=== PATIENT | female | born 1955 | race Caucasian/White ===

== ENCOUNTER 2023-10-02 08:12 | Observation (INO) | payer MEDICARE, BC ==
[~2023-10-02] VITALS: Ht 167.6 cm; Wt 68.5 kg
[2023-10-02 09:00] VITALS: BP 141/86; PULSE 61; RESP 16; RESP 18; TEMP 97.8; O2SAT 94; O2SAT 98
[2023-10-02] MEDS ORDERED: PRAV80TA3 PO (09:26)
[2023-10-02] MEDS ORDERED: METO-384 PO (09:26)
[2023-10-02] MEDS ORDERED: LEVO25TA7 PO (09:26)
[2023-10-02] MEDS ORDERED: AMI200T PO (09:26)
[2023-10-02] MEDS ORDERED: NORT25CA PO (09:26)
[2023-10-02] MEDS ORDERED: DAPA10TA PO (09:26)
[2023-10-02] MEDS ORDERED: ISOS30TA84 PO (09:26)
[2023-10-02] MEDS ORDERED: PANT40TA54 PO (09:26)
[2023-10-02] MEDS ORDERED: GABA600T13 PO (09:26)
[2023-10-02] MEDS ORDERED: CYCL5TAB PO (09:26)
[2023-10-02] MEDS ORDERED: SACU1TAB PO (09:26)
[2023-10-02] MEDS ORDERED: DABI150C PO (09:26)
[2023-10-02 09:35] LABS: BASOPHILS # (AUTO) 0.1 X10'3 (0-0.2); BASOPHILS % (AUTO) 1.2 % (0-1); EOSINOPHILS # (AUTO) 0.1 X10'3 (0-0.9); EOSINOPHILS % (AUTO) 2.7 % (0-6); HEMATOCRIT 39.3 % (35.0-45.0); HEMOGLOBIN 13.3 g/dl (12.0-16.0); LYMPHOCYTES # (AUTO) 2.3 X10'3 (1.1-4.8); LYMPHOCYTES % (AUTO) 44.9 % (21-51); MEAN CORPUSCULAR HEMOGLOBIN 31.1 PG (27.0-31.0); MEAN CORPUSCULAR HGB CONC 33.9 g/dL (33.0-36.5); MEAN CORPUSCULAR VOLUME 91.7 FL (78-98); MEAN PLATELET VOLUME 8.1 FL (7.4-10.4); MONOCYTES # (AUTO) 0.5 X10'3 (0-0.9); MONOCYTES % (AUTO) 10.3 % (2-12); NEUTROPHILS # (AUTO) 2.1 X10'3 (1.8-7.7); NEUTROPHILS % (AUTO) 40.9 % (42-75); PLATELET COUNT 233 X10'3 (140-440); RED BLOOD COUNT 4.29 X10'6 (4.20-5.60); RED CELL DISTRIBUTION WIDTH 13.8 % (11.5-14.5); WHITE BLOOD COUNT 5.1 X10'3 (4.5-11.0)
[2023-10-02 09:38] LABS: ALBUMIN 3.5 G/DL (3.4-5.0); ANION GAP 7 (8-16); BLOOD UREA NITROGEN 16 MG/DL (7-18); CALCIUM 8.9 MG/DL (8.5-10.1); CHLORIDE 107 MMOL/L (99-107); CREATININE 0.89 MG/DL (0.40-0.90); GLUCOSE 82 MG/DL (70-104); INR 1.1 INR; MAGNESIUM 2.3 MG/DL (1.5-2.4); POTASSIUM 3.9 MMOL/L (3.5-5.1); SODIUM 141 MMOL/L (135-145); TOTAL CARBON DIOXIDE 27.1 MMOL/L (24-32); eCRCL 58 ML/MIN; eGFR 63 ML/MIN
[2023-10-02] MEDS: cefazolin 2gm/D5W 100mL 100 ML IV ONE (09:50)
[2023-10-02] MEDS ORDERED: LIDOcaine 1% W/epiNEPHrine 1:100,000 20ml vial ONE ×2 (12:14→16:01)
[2023-10-02] MEDS ORDERED: fentaNYL/PF 50MCG/1 ML 2ML syringe ONE ×2 (12:14→15:42)
[2023-10-02] MEDS ORDERED: midazolam 1 mg/ML 2ml injection ONE ×3 (12:14→15:45)
[2023-10-02] MEDS ORDERED: vancomycin 1,000mg inj ONE (12:15)
[2023-10-02] MEDS ORDERED: ceFAZolin 1000mg inj ONE (13:51)
[2023-10-02] MEDS ORDERED: iohexol 350 MG/ML 50ML vial IV ONE (14:00)
[2023-10-02] MEDS ORDERED: clindamycin 600mg/D5W 50ml 50 ML IV ONE (15:01)
[2023-10-02] MEDS: normal saline 1000ml 1,000 ML IV SCH (17:30)
[2023-10-02] MEDS: HYDROcodone/acetaminophen 5mg/325mg tablet PO PRN (17:48)
[2023-10-02] MEDS: ketorolac trometh 15mg/ml vial 15 MG/ML ML IV ONE (19:00)
[2023-10-02 22:00] VITALS: BP 136/87; PULSE 60; RESP 11; TEMP 98; O2SAT 95
[2023-10-02] MEDS: cyclobenzaprine 10mg tablet PO PRN (22:32)
[2023-10-02] MEDS: metoprolol succinate 25mg (24-HOUR) SR. Tablet PO SCH (22:32)
[2023-10-02] MEDS: gabapentin 300mg capsule PO SCH (22:32)
[2023-10-02] MEDS: amiodarone 100mg tablet PO SCH (22:32)
[2023-10-02] MEDS: nortriptyline 25mg capsule PO SCH (22:36)
[2023-10-02] MEDS: sacubitril/valsartan 24mg-26mg tablet PO SCH (23:21)
[2023-10-02 23:25] VITALS: RESP 11; O2SAT 95
[2023-10-03 02:00] VITALS: BP 136/87; PULSE 60; RESP 11; TEMP 98.2; O2SAT 93
[2023-10-03 06:00] VITALS: BP 140/84; PULSE 60; RESP 14; TEMP 98; O2SAT 93
[2023-10-03 06:30] VITALS: O2SAT 94
[2023-10-03] MEDS: HYDROcodone/acetaminophen 10/325mg tab PO PRN (07:08)
[2023-10-03 09:30] VITALS: RESP 14; O2SAT 94
[2023-10-03] MEDS: pantoprazole 40mg Tablet.DR PO SCH (09:40)
[2023-10-03] MEDS: isosorbide mononitrate 30mg tab.SR.24H PO SCH (09:40)
[2023-10-03] MEDS: atorvastatin 20mg tablet PO SCH (09:40)
[2023-10-03] MEDS: levoTHYROXINE 25mcg tablet PO SCH (09:40)
[2023-10-03] MEDS: DAPAGLIFLOZIN 10MG TABLET PO SCH (09:41)
[2023-10-03 10:00] VITALS: BP 122/77; PULSE 60; RESP 14; TEMP 98.3; O2SAT 94
[2023-10-03] MEDS ORDERED: dabigatran 150mg capsule PO SCH (16:00)
== END 2023-10-03 12:45 | disposition home or self-care (01) ==
LOC: SSTAY O 08:12 → PCU 3S 09:43 → UNDOADMOB 09:43 → PCU 3S 11:11 → INTOOBSV 17:00 → PCU 3S 17:00 → UNDOADMOB 17:00 → UNDODISOB 10-03 12:45
PROVIDERS: ADMIT Internal Medicine Cardiovascular Disease; ATTEND Internal Medicine Cardiovascular Disease
DX: I42.0 Dilated cardiomyopathy (principal); I50.22 Chronic systolic (congestive) heart failure; I45.9 Conduction disorder, unspecified; I48.0 Paroxysmal atrial fibrillation; I49.5 Sick sinus syndrome; R07.9 Chest pain, unspecified; I95.1 Orthostatic hypotension; I44.7 Left bundle-branch block, unspecified; E03.9 Hypothyroidism, unspecified; E78.00 Pure hypercholesterolemia, unspecified; Z95.0 Presence of cardiac pacemaker; Z79.899 Other long term (current) drug therapy
CPT/HCPCS: 80048; 83735; 85610; 93005; 96374; 99152; 99153; A4565; A4620; C1769; C1900; C2621; G0378; J3490; Q9967; 33225; 33229; 36415; 71045; 85025; J0690; J1885; J2250; J3010; J3370; J7030

== ENCOUNTER 2024-09-15 00:43 | Inpatient (IN) | payer MEDICARE, BC ==
[2024-09-15] VITALS (8 sets, daily range): BP systolic 91–121; BP diastolic 57–74; PULSE 60–61; RESP 14–16; O2SAT 93–96
[~2024-09-15] VITALS: Ht 167.6 cm; Wt 60.1 kg
[~2024-09-15 00:43] MED LIST: AMI200T PO; CYCL-920 PO; DABI150C PO; DAPA10TA PO; GABA-1405 PO; ISOS30TA84 PO; LEVO25TA7 PO; METO-384 PO; NORT25CA PO; PANT40TA54 PO; PRAV80TA3 PO; SACU1TAB PO
--- NOTE | 2024-09-15 01:07 | Physician Documentation ---
History of Present Illness ~ Chief Complaint: Chest Pain Stated Complaint: CHEST PAIN Time Seen by MD: 01:07 HPI Patient presents to the emergency room for evaluation of chest pain that woke her out of sleep this evening. Patient states that it is like a Charley horse has radiating to her bilateral chest exacerbated with deep breaths. No prior instances. The patient did have a pacemaker placed last September and she reports that an angiography was done prior to that was negative for disease. Positive nausea without vomiting. No significant history of heartburn. Denies one-sided leg pain. Patient does have a history of high blood pressures well as cholesterol but no diabetes and patient does not smoke or have first-degree relative of heart disease. Medication Reconciliation Allergies: Coded Allergies: Penicillins (Verified Allergy, Unknown, RASH ONE TIME, 09/15/24) >5 years, rash, on treatment required Sulfa (Sulfonamide Antibiotics) (Verified Allergy, Unknown, 09/15/24) vancomycin (Verified Allergy, Unknown, 09/15/24) Scheduled Amiodarone Hcl (Cordarone), 0.5 TAB PO BID, (Reported) Apixaban (Eliquis), 1 TAB PO BID, (Reported) Cephalexin Monohydrate (Cephalexin), 1 CAP PO Q6H Gabapentin (Gabapentin), 1 TAB PO BID, (Reported) Levothyroxine Sodium (Levothyroxine Sodium), 1 TAB PO DAILY, (Reported) Metoprolol Succinate (Metoprolol Succinate), 0.5 TAB PO BID, (Reported) Nortriptyline HCl (Nortriptyline HCl), 2 CAP PO TID, (Reported) Pantoprazole Sodium (Pantoprazole Sodium), 1 TAB PO DAILY, (Reported) Potassium Chloride (Potassium Chloride), 1 TAB PO DAILY, (Reported) Pravastatin Sodium (Pravastatin Sodium), 1 TAB PO DAILY, (Reported) Sacubitril/Valsartan (Entresto 24 mg-26 mg Tablet), 1 TAB PO BID, (Reported) Discontinued Medications Cyclobenzaprine HCl (Cyclobenzaprine HCl), 1 TAB PO TID PRN for muscle spasms, (Reported) Discontinued Reason: completed med therapy Dabigatran (PRADAXA capsule), 1 CAP PO BID, (Reported) Discontinued Reason: completed med therapy Dapagliflozin Propanediol (Farxiga), 1 TAB PO DAILY, (Reported) Discontinued Reason: completed med therapy Isosorbide Mononitrate (Isosorbide Mononitrate Er), 1 TAB PO DAILY, (Reported) Discontinued Reason: completed med therapy Levothyroxine Sodium (Levothyroxine Sodium), 1 TAB PO DAILY, (Reported) Discontinued Reason: patient no longer taking Review of Systems ROS All review of systems negative except as per HPI Physical Exam Vital Signs: Temperature: 96.8, Source: Temporal, Heart Rate: 71, Respiratory Rate: 15, BP: 177/90, Pulse Oximetry: 99, Weight: 60.100 Physical Exam General: Patient is awake, alert, oriented x4 in mild distress Head: Normocephalic and atraumatic. Eyes: Conjunctival normal. EOMI. PERRL. ENT: Mucous membranes moist. Neck: Supple, trachea is midline. Chest: Clear to auscultation bilaterally without rales, rhonchi, or wheezes. There is no accessory muscle use or retractions. Cardiac: RRR without murmurs, gallops, or rubs. Abd: Soft, nondistended, nontender, with normoactive bowel sounds. No guarding, rebound, or rigidity. Extremities: Normal strength. Normal range of motion. No deformities or edema. No calf tenderness to palpation Progress Progress Note 7:29 a.m. Doctor Hetal Montgomery received this patient in sign-out 68-year-old female history of HFrEF, P p.m. presenting for crushing chest pain she awoke her from sleep. Radiated to her neck and left arm. No history of similar. She is now chest pain-free. No history of coronary artery disease heart score 6. Troponin negative. I personally interpreted the EKG showed no ischemia 7:[address] Corcoran who agree with management plan and graciously accept for admission Results/Orders Reviewed/noted all lab results: Yes Results/Orders Orders - DAR BHATIA MD Chest,Single View (09/15/24 01:30) Monitor (09/15/24 00:49) Saline Lock (09/15/24 00:49) Oxygen (09/15/24 00:49) Electrocardiogram (09/15/24 00:49) Cta Chest Pe (09/15/24 04:45) Completed Orders - DAR BHATIA MD Chest,Single View (09/15/24 01:30) Cbc/Diff (09/15/24 00:49) PBNP (09/15/24 00:49) Electrocardiogram (09/15/24 00:49) CMP (09/15/24 00:49) Hs Troponin I W Calculations (09/15/24 00:49) Hs Troponin I W Calculations (09/15/24 02:49) Hs Troponin I W Calculations (09/15/24 03:49) Ondansetron Inj. (Zofran 4mg/2ml Vial) (09/15/24 01:25) Mag & Alum Hydrox/Simeth Susp (Maalox Or (09/15/24 01:25) Lidocaine 2% Viscous (Xylocaine 2% Visco (09/15/24 01:25) Hydrocodone/Apap 5/325mg Tab ([place] (09/15/24 02:10) Cta Chest Pe (09/15/24 04:45) Iohexol 350mg/Ml 100ml (Omnipaque 350mg/ (09/15/24 03:26) Lipid Panel (09/15/24 01:15) Vital Signs 09/15/24 09/15/24 07:20 08:18 Temp 96.7 Pulse 60 Resp 12 16 B/P (MAP) 129/72 (91) Pulse Ox 94 O2 Flow Rate 0 FiO2 21 Laboratory Tests Test 09/15/24 01:15 09/15/24 02:49 09/15/24 03:55 White Blood Count 7.5 Red Blood Count 4.18 L Hemoglobin 13.3 Hematocrit 38.7 Mean Corpuscular Volume 92.5 Mean Corpuscular Hemoglobin 31.8 H Mean Corpuscular Hemoglobin Concent 34.4 Red Cell Distribution Width 13.8 Platelet Count 238 Mean Platelet Volume 8.6 Neutrophils (%) (Auto) 48.8 Lymphocytes (%) (Auto) 37.1 Monocytes (%) (Auto) 10.8 Eosinophils (%) (Auto) 2.5 Basophils (%) (Auto) 0.8 Neutrophils # (Auto) 3.7 Lymphocytes # (Auto) 2.8 Monocytes # (Auto) 0.8 Eosinophils # (Auto) 0.2 Basophils # (Auto) 0.1 CBC Comment Sodium Level 139 Potassium Level 3.9 Chloride Level 103 Carbon Dioxide Level 25.9 Anion Gap 10 Blood Urea Nitrogen 17 Creatinine 1.05 H Estimated GFR/1.73 m2 52 BUN/Creatinine Ratio 16.2 Glucose Level 95 Hemoglobin A1c 5.6 Calcium Level 8.5 Total Bilirubin 0.3 Aspartate Amino Transf (AST/SGOT) 43 H Alanine Aminotransferase (ALT/SGPT) 85 H Alkaline Phosphatase 117 H Troponin I High Sensitivity 9 10 11 Pro-B-Type Natriuretic Peptide 198 H Total Protein 6.9 Albumin 3.6 Globulin 3.3 Albumin/Globulin Ratio 1.1 Triglycerides Level 58 Cholesterol Level 150 LDL Cholesterol 72 HDL Cholesterol 60 Cholesterol/HDL Ratio 2.5 Chemistry Comments Troponin I High Sens Percent Delta 11 10 Troponin I Hi Sens Absolute Change 1 1 Re-Evaluation Re-Evaluation : Progress Patient presents to the emergency room for evaluation of chest pain. D ifferentials include but are not limited to ACS, pulmonary embolism, aortic pathology, reflux. Negative response to GI cocktail although patient is beginning to feel better. Chest pain is atypical in that it is exacerbated with deep inspirations however central in nature and radiating to bilateral shoulders and neck. Patient with some risk factors with an elevated heart score of four. EKG/XRAY/CT/US/VASC/MRI EKG : Additional Comment EKG interpreted by myself shows time of 0047, rate 71, paced rhythm, no further analysis secondary to paced rhythm Heart Score: Heart Score Response (Comments) Value History Highly Suspicious 2 EKG Repolarization Disturb 1 Age >65 2 Risk Factors 1 or 2 risk factors 1 Troponin N/A 0 Total 6 Medical Decision Making Differential Dx:Considerations: Include: angina, aortic dissection, chest wall pain Departure Disposition: ADMITTED INPATIENT Admitted to Inpatient Unit: to hospitalist Impression: Primary Impression: Chest pain Qualified Codes: R07.9 - Chest pain, unspecified Referrals: NO PRIMARY CARE PROVIDER (PCP) Prescriptions Cephalexin Monohydrate (Cephalexin) 500 Mg Capsule 1 CAP PO Q6H, #20 CAP Prov: ROMMEL CORCORAN DO 09/16/24 Signature Scribe Signature: No scribe Attestation: The note accurately reflects work and decisions made by me.Dar Bhatia MD 09/15/24 06:01 DAR BHATIA MD September 15, 2024 01:07 LUIS SALAS MD September 15, 2024 07:30
[2024-09-15 01:25] LABS: BASOPHILS # (AUTO) 0.1 X10'3 (0-0.2); BASOPHILS % (AUTO) 0.8 % (0-1); EOSINOPHILS # (AUTO) 0.2 X10'3 (0-0.9); EOSINOPHILS % (AUTO) 2.5 % (0-6); HEMATOCRIT 38.7 % (35.0-45.0); HEMOGLOBIN 13.3 g/dl (12.0-16.0); LYMPHOCYTES # (AUTO) 2.8 X10'3 (1.1-4.8); LYMPHOCYTES % (AUTO) 37.1 % (21-51); MEAN CORPUSCULAR HEMOGLOBIN 31.8 PG (27.0-31.0); MEAN CORPUSCULAR HGB CONC 34.4 g/dL (33.0-36.5); MEAN CORPUSCULAR VOLUME 92.5 FL (78-98); MEAN PLATELET VOLUME 8.6 FL (7.4-10.4); MONOCYTES # (AUTO) 0.8 X10'3 (0-0.9); MONOCYTES % (AUTO) 10.8 % (2-12); NEUTROPHILS # (AUTO) 3.7 X10'3 (1.8-7.7); NEUTROPHILS % (AUTO) 48.8 % (42-75); PLATELET COUNT 238 X10'3 (140-440); RED BLOOD COUNT 4.18 X10'6 (4.20-5.60); RED CELL DISTRIBUTION WIDTH 13.8 % (11.5-14.5); WHITE BLOOD COUNT 7.5 X10'3 (4.5-11.0)
[2024-09-15 01:41] LABS: ALANINE AMINOTRANSFERASE 85 U/L (12-78); ALBUMIN 3.6 G/DL (3.4-5.0); ALBUMIN/GLOBULIN RATIO 1.1 (1.1-1.5); ALKALINE PHOSPHATASE 117 IU/L (46-116); ANION GAP 10 (8-16); ASPARTATE AMINO TRANSFERASE 43 U/L (10-37); BILIRUBIN,TOTAL 0.3 MG/DL (0.1-1.0); BLOOD UREA NITROGEN 17 MG/DL (7-18); BUN/CREATININE RATIO 16.2 (10.0-20.0); CALCIUM 8.5 MG/DL (8.5-10.1); CHLORIDE 103 MMOL/L (99-107); CREATININE 1.05 MG/DL (0.40-0.90); GLUCOSE 95 MG/DL (70-104); POTASSIUM 3.9 MMOL/L (3.5-5.1); SODIUM 139 MMOL/L (135-145); TOTAL CARBON DIOXIDE 25.9 MMOL/L (24-32); TOTAL PROTEIN 6.9 G/DL (6.4-8.2); eCRCL 49 ML/MIN; eGFR 52 ML/MIN
[2024-09-15] MEDS: LIDOcaine 2% Viscous 15ml cup MM ONE (01:44)
[2024-09-15] MEDS: ondansetron/PF 4mg/2ml inj IV ONE (01:44)
[2024-09-15] MEDS: mag hydrox/Alum hydrox/simeth 30ml oral suspension PO ONE (01:44)
[2024-09-15 01:48] LABS: PRO BRAIN NATRIURETIC PEPTIDE 198 PG/ML (0-125)
--- NOTE | 2024-09-15 01:50 | RADIOLOGY REPORT ---
CHEST RADIOGRAPH Indication: CP Technique: Single frontal view of the chest was obtained COMPARISON: DI CHEST,SINGLE VIEW on DOS: 10/02/23 FINDINGS: Lines and Tubes: Dual-lead pacemaker again noted overlying left chest wall. Lungs: Clear Pleura: No effusion. No pneumothorax. Cardiomediastinal contours: Unremarkable IMPRESSION: No abnormality demonstrated. No appreciable change compared to the prior chest x-ray from September 2023.
[2024-09-15] MEDS: HYDROcodone/acetaminophen 5mg/325mg tablet PO ONE (02:25)
[2024-09-15] MEDS ORDERED: iohexol 350MG/ML 100ml bottle IV ONE (03:26)
--- NOTE | 2024-09-15 05:27 | RADIOLOGY REPORT ---
EXAM: CT Angiography Chest With Intravenous Contrast CLINICAL INDICATION: cp TECHNIQUE: Axial computed tomographic angiography images of the chest with intravenous contrast. Th is CT exam was performed using one or more of the following dose reduction techniques: automated exp osure control, adjustment of the mA and/or kV according to patient size, and/or use of iterative jonelle nstruction technique. MIP reconstructed images were created and reviewed. CONTRAST: COMPARISON: None FINDINGS: PULMONARY ARTERIES: Unremarkable. No pulmonary embolism. AORTA: No acute findings. No thoracic aortic aneurysm. LUNGS AND PLEURAL SPACES: Mild lung emphysema/COPD. Dependent atelectasis. No mass. No significan t effusion. No pneumothorax. HEART: Unremarkable. No cardiomegaly. No significant pericardial effusion. No evidence of RV dys function. BONES/JOINTS: No acute fracture. No dislocation. SOFT TISSUES: Unremarkable. LYMPH NODES: Unremarkable. No enlarged lymph nodes. OTHER FINDINGS: . . . IMPRESSION: No pulmonary embolism.
--- NOTE | 2024-09-15 07:05 | ELECTROCARDIOGRAPH REPORT ---
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 Erasmo Curiel Measurements Intervals [place] Rate: 71 P: 58 [place]: 177 QRS: -76 QRSD: 141 T: 104 QT: 475 QTc: 517 Interpretive Statements Atrial-sensed ventricular-paced rhythm No further analysis attempted due to paced rhythm Baseline wander in lead(s) I,II,aVR,aVF,V2,V4 Electronically Signed On 09-17-2024 11:02:[address] Erasmo Curiel Please click the below link to view image of tracing.
[2024-09-15] MEDS ORDERED: mag hydrox/Alum hydrox/simeth 30ml oral suspension PO PRN (07:30)
[2024-09-15] MEDS ORDERED: DEXTROSE 15 GM of carb/4 tabs (each vial/BOTTLE has 4 tablets) PO PRN ×2 (07:30)
[2024-09-15] MEDS ORDERED: acetaminophen 325mg tablet PO PRN (07:30)
[2024-09-15] MEDS ORDERED: dextrose 50%-water 50ml dispensing syringe IV PRN ×2 (07:30)
[2024-09-15] MEDS ORDERED: glucagon, human recombinant 1mg kit SUBCUT PRN (07:30)
[2024-09-15] MEDS ORDERED: metoprolol tartrate 1mg/ml inj IV PRN (07:30)
[2024-09-15] MEDS ORDERED: magnesium sulf-water 4G/100mL 100 ML IV PRN (07:30)
[2024-09-15] MEDS ORDERED: magnesium sulf-water 2g/50mL 50 ML IV PRN (07:30)
[2024-09-15] MEDS ORDERED: aminophylline 250mg/10ml inj. IV PRN (07:30)
[2024-09-15] MEDS ORDERED: ondansetron/PF 4mg/2ml inj IV PRN (07:30)
[2024-09-15] MEDS ORDERED: potassium Cl 40MEQ/1/2NS 520ml 520 ML IV PRN (07:30)
[2024-09-15] MEDS ORDERED: bisacodyl 10mg suppository rectal RC PRN (07:30)
[2024-09-15] MEDS ORDERED: potassium Cl 20 mEq SR tablet PO PRN ×2 (07:30)
[2024-09-15] MEDS: PERFLUTREN PROTEIN-A MICROSPHR (Optison) 0.22 MG/ML 3ML VIAL IV ONE (07:42)
[2024-09-15] MEDS: docusate sod 100mg capsule PO SCH (08:00)
[2024-09-15] MEDS: K and/or MAG REPLACEMENT MC SCH (08:00)
[2024-09-15 08:11] LABS: CHOL/HDL RATIO 2.5 (0.00-4.99); CHOLESTEROL 150 MG/DL (0-200); HDL CHOLESTEROL 60 MG/DL (35-60); LDL CHOLESTEROL 72 MG/DL (50-100); TRIGLYCERIDES 58 MG/DL (20-135)
[2024-09-15] MEDS: normal saline 1000ml 1,000 ML IV SCH (08:19)
--- NOTE | 2024-09-15 09:53 | HISTORY AND PHYSICAL ---
History & Physical Providers to CC ~ History of Present Illness Reason for Admit\Complaint: Chest pain eval for UT History of Present Illness This is a 68-year-old female who woke up out of the asleep at 11:30 p.m. last evening with sensation of a Charley horse in the substernal region that was 8/10 with radiation to her neck and down her arms is spontaneous resolved within 1 hour patient presented to the ED in the midst of this episode and resolved without any medications. The patient was diaphoretic with the episode however was not short of breath. She has had couple episodes since that are not as intense and are more of a 5/10 the pain level. The patient has felt fatigued for a couple of days however yesterday she actually felt better and went out. 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 The patient currently is chest pain-free an echocardiogram and a Lexiscan stress test is ordered. Her troponins are negative an EKG is negative for signs of ischemia. Allergies: Coded Allergies: Penicillins (Verified Allergy, Unknown, RASH ONE TIME, 09/15/24) >5 years, rash, on treatment required Sulfa (Sulfonamide Antibiotics) (Verified Allergy, Unknown, 09/15/24) vancomycin (Verified Allergy, Unknown, 09/15/24) Home Medications Home Medications Active Reported Cyclobenzaprine HCl 5 Mg Tablet 1 Tab PO TID PRN Pantoprazole Sodium 40 Mg Tablet.dr 1 Tab PO DAILY Gabapentin 600 Mg Tablet 1 Tab PO BID PRADAXA capsule (Dabigatran) 150 Mg Capsule 1 Cap PO BID Cordarone (Amiodarone HCl) 200 Mg Tablet 0.5 Tab PO BID Levothyroxine Sodium 25 Mcg Tablet 1 Tab PO DAILY Metoprolol Succinate 50 Mg Tab.sr.24h 0.5 Tab PO BID Farxiga (Dapagliflozin Propanediol) 10 Mg Tablet 1 Tab PO DAILY Entresto 24 mg-26 mg Tablet (Sacubitril/Valsartan) 24 Mg-26 Mg Tablet 1 Tab PO BID Nortriptyline HCl 25 Mg Capsule 2 Cap PO TID Isosorbide Mononitrate Er (Isosorbide Mononitrate) 30 Mg Tab.er.24h 1 Tab PO DAILY Pravastatin Sodium 80 Mg Tablet 1 Tab PO DAILY Past Medical History Past Medical History Dilated cardiomyopathy with the last EF of 40% in September prior echocardiogram EF was 30% Jaycee's thyroiditis Past Surgical History Surgical History Comment Pacemaker placement with removal and a biventricular pacemaker placed in September of 2023 Hysterectomy Cervical disc replacement Foot reconstruction SI joint fusion Family History Family History: FH: CABG (coronary artery bypass surgery) Maternal grandfather FH: CVA (cerebrovascular accident) FATHER FH: lung cancer (Small-cell) MOTHER Sinus bradycardia FATHER Past Social History Social History Comment Patient denes history of smoking/ drinking alcohol nor any illicit drug use Full Code Status ROS ROS Except for positives in the HPI the rest of the 14 point review systems is negative Exam Vitals: Vital Signs Date Time Temp Pulse Resp B/P (MAP) Pulse Ox O2 Delivery O2 Flow Rate FiO2 09/15/24 08:18 96.7 60 16 129/72 (91) 94 0 21 09/15/24 00:50 Room Air* General: Gen. 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 sublingual nitroglycerin for chest pain # dilated cardiomyopathy Awaiting med reconciliation Echocardiogram # Jaycee's thyroiditis Awaiting med reconciliation # DVT prophylaxis SCDs and SQ Lovenox I spent a total of 17 minutes on reviewing various resuscitative measures/ ACP with the patient at the time of admission. The patient has decided on full code status Date of Service: September 15, 2024 Billing Provider: ROMMEL RENDON DO Common Visit Codes: 60643-VFIGQFO INP/OBS CARE (HIGH) Secondary Visit Codes: 55000-GJFUVMQR CARE PLAN 30 MINUTES Problem Qualifiers (1) Chest pain: Chest pain type: unspecified Qualified Codes: R07.9 - Chest pain, unspecified ROMMEL RENDON DO September 15, 2024 09:53
--- NOTE | 2024-09-15 11:59 | ELECTROCARDIOGRAPH REPORT ---
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 Erasmo Curiel Measurements Intervals [place] Rate: 60 P: 224 [place]: 436 QRS: -81 QRSD: 161 T: 109 QT: 523 QTc: 523 Interpretive Statements Atrial-ventricular dual-paced rhythm No further analysis attempted due to paced rhythm Electronically Signed On 09-17-2024 11:02:[address] Erasmo Curiel Please click the below link to view image of tracing.
[2024-09-15] MEDS ORDERED: INSULIN LISPRO 100 UNIT/ML INSULN.PEN MULTI-DOSE SQ SCH (12:00)
[2024-09-15] MEDS: nitroGLYCERIN 0.4mg SUBLingual tab SL PRN (12:19)
[2024-09-15] MEDS: regadenoson 0.4mg/5ml syringe IV PRN (13:23)
[2024-09-15] MEDS ORDERED: aminophylline 500mg/20ml vial ONE (13:27)
--- NOTE | 2024-09-15 16:05 | RADIOLOGY REPORT ---
Reason for study/Clinical History: Chest pain radiating to the left upper extremity Comparison Study: None Myocardial Perfusion Study with SPECT Technique: The patient received an intravenous injection of 5 mCi of technetium-99m Sestamibi while at rest. After a short delay, SPECT tomographic images of the heart were obtained. The patient the n went to the stress lab where they received an intravenous Lexiscan utilizing standard protocol. 34 mCi of technetium-99m Sestamibi was injected intravenously immediately after the start of the infu elo. Gated SPECT tomographic images of the heart were acquired and processed. Findings: Rotating planar images show no significant attenuation artifact. The left ventricular size is within normal limits. Stress tomographic images demonstrate normal perfusion. Resting tomographic images demonstrate a similar pattern. Gated portion of the study shows normal wall motion and myocardial thickening. The left ventricular ejection fraction is 56 %. (normal greater than 50%) Impression: Normal left ventricular size, wall motion, and function, without evidence of infarction or of myocard ium at ischemic risk. The left ventricular ejection fraction is 56 %.
[2024-09-15] MEDS: enoxaparin 40mg/0.4ml syringe SQ SCH (19:41)
[2024-09-15] MEDS ORDERED: LEVO50TA8 PO (22:45)
[2024-09-15] MEDS ORDERED: APIX5TAB3 PO (22:45)
[2024-09-15] MEDS ORDERED: POTA-366 PO (22:45)
[2024-09-16 00:17] LABS: BILIRUBIN,URINE NEGATIVE (Neg); CLARITY,URINE CLOUDY (Clear); COLOR,URINE YELLOW (Yellow); GLUCOSE, URINE NEGATIVE (Neg); KETONES,URINE TRACE mg/dl (Neg); LEUKOCYTE ESTERASE ,URINE LARGE (Neg); NITRITES, URINE NEGATIVE (Neg); OCCULT BLOOD,URINE LARGE (Neg); PROTEIN,URINE 30 mg/dl (Neg)
--- NOTE | 2024-09-16 00:17 | CARDIOLOGY REPORT ---
APPROVED REPORT EXAM: Comprehensive 2D, Doppler, and color-flow Echocardiogram. Patient Location: ER RM 13 Blood Pressure: 140/42 mmHg Heart Rate: 67 bpm Rhythm: Pacemaker Indications Congestive Heart Failure Hypertension COPD Diabetes HAND TOOL LAPPER: Adri Angela MD Previous ECHO: 12/11/20, [facility], RL, EF: 70 2D Dimensions LA Diam2.8 cm IVSd 1.0 (0.7-1.1cm) LVDd 3.8 cm PWd 1.1 (0.7-1.1cm) IVSs 1.3 (0.8-1.2cm) LVDs 2.8 (2.5-4.0cm) PWs 1.3 (0.8-1.2cm) LVOT Diameter 1.98 (1.8-2.4cm) LVEF(%) 50.2 (>50%) IVC 13.01 mm FS (%) 25.0 % SV 30.8 ml CO 2.1 L/min M-Mode Dimensions Left Atrium(MM) 3.38 (2.5-4.0cm) Aortic Root 2.92 (2.2-3.7cm) Aortic Cusp Exc 1.65 (1.5-2.0cm) MV EPSS 0.5 (<0.5cm) Aortic Valve AoV Peak Lencho. 138.0 cm/s AoV VTI 25.2 cm AO Peak GR. 7.6 mmHg AO Mean GR. 4 mmHg LVOT VTI 22.38 cm LVOT Peak Lencho. 98.5 cm/s ED(VTI)/BSA 2.73 cm2/m2 ED (VTI) 2.73 cm2 AI P 1/2 Time 840 ms Mitral Valve MV E Velocity 52.9 cm/s MV Peak Gr. 2 mmHg MV DECEL TIME 236 ms MV A Velocity 55.2 cm/s MV PHT 68 ms E/A Ratio 1.0 MVA (PHT) 3.24 cm2 MV VMax70.5 cm/s TDI Lateral E' P. V8.43 cm/s E/Lateral E' 6.3 Tricuspid Valve TR P. Velocity 181 cm/s RAP ESTIMATE 10 mmHg TR Peak Gr. 13 mmHg RVSP 23 mmHg LEFT VENTRICLE Normal LV size and wall thickness. Overall systolic function is low normal. LVEF is 50%. RIGHT VENTRICLE Right ventricle is grossly normal in size with function. ATRIA The left atrium size is normal. Pacemaker lead is present in the right heart. AORTIC VALVE Trileaflet AV appears mildly sclerotic without stenosis. Mild insufficiency. MITRAL VALVE Mild mitral annular calcification without stenosis. Trace regurgitation. TRICUSPID VALVE The tricuspid valve is normal in structure with trace regurgitation. PULMONIC VALVE The pulmonary valve is normal in structure with physiologic insufficiency. GREAT VESSELS The aortic root is normal in size. The IVC is normal in size and collapses >50% with inspiration. PERICARDIUM Normal pericardium. No effusion. Other Information Study Quality: Adequate Conclusion Normal LV size and wall thickness. Overall systolic function is low normal. LVEF is 50%. Right ventricle is grossly normal in size with function. The left atrium size is normal. Pacemaker lead is present in the right heart. Trileaflet AV appears mildly sclerotic without stenosis. Mild insufficiency. Mild mitral annular calcification without stenosis. Trace regurgitation. The tricuspid valve is normal in structure with trace regurgitation. The pulmonary valve is normal in structure with physiologic insufficiency. Normal pericardium. No effusion.
[2024-09-16 00:19] LABS: UA COLLECTION TYPE CLN CATCH MIDSTREAM
[2024-09-16 00:23] LABS: BACTERIA,URINE FEW /HPF (Neg); RBC,URINE TNTC /HPF (0-2); SQUAMOUS EPITHELIAL CELL,UR FEW /LPF (FEW); TRANSITIONAL EPI CELLS,URINE FEW /HPF
[2024-09-16] MEDS: morphine 2 MG/ML inj. syringe IV PRN (02:01)
[2024-09-16 02:47] LABS: BASOPHILS # (AUTO) 0.1 X10'3 (0-0.2); BASOPHILS % (AUTO) 0.8 % (0-1); EOSINOPHILS # (AUTO) 0.1 X10'3 (0-0.9); EOSINOPHILS % (AUTO) 1.7 % (0-6); HEMATOCRIT 38.6 % (35.0-45.0); HEMOGLOBIN 12.9 g/dl (12.0-16.0); LYMPHOCYTES # (AUTO) 1.8 X10'3 (1.1-4.8); MEAN CORPUSCULAR HGB CONC 33.3 g/dL (33.0-36.5); MEAN CORPUSCULAR VOLUME 93.2 FL (78-98); MEAN PLATELET VOLUME 8.9 FL (7.4-10.4); MONOCYTES # (AUTO) 0.6 X10'3 (0-0.9); MONOCYTES % (AUTO) 8.7 % (2-12); NEUTROPHILS # (AUTO) 4.6 X10'3 (1.8-7.7); NEUTROPHILS % (AUTO) 63.8 % (42-75); PLATELET COUNT 236 X10'3 (140-440); RED BLOOD COUNT 4.14 X10'6 (4.20-5.60); WHITE BLOOD COUNT 7.2 X10'3 (4.5-11.0)
[2024-09-16 03:03] LABS: ALANINE AMINOTRANSFERASE 88 U/L (12-78); ALBUMIN 3.6 G/DL (3.4-5.0); ALBUMIN/GLOBULIN RATIO 1.1 (1.1-1.5); ALKALINE PHOSPHATASE 93 IU/L (46-116); ANION GAP 9 (8-16); ASPARTATE AMINO TRANSFERASE 46 U/L (10-37); BILIRUBIN,TOTAL 0.4 MG/DL (0.1-1.0); BLOOD UREA NITROGEN 17 MG/DL (7-18); BUN/CREATININE RATIO 17.3 (10.0-20.0); CALCIUM 8.9 MG/DL (8.5-10.1); CHLORIDE 105 MMOL/L (99-107); CREATININE 0.98 MG/DL (0.40-0.90); GLUCOSE 91 MG/DL (70-104); MAGNESIUM 2.2 MG/DL (1.5-2.4); POTASSIUM 4.6 MMOL/L (3.5-5.1); SODIUM 142 MMOL/L (135-145); TOTAL CARBON DIOXIDE 28.2 MMOL/L (24-32); TOTAL PROTEIN 6.8 G/DL (6.4-8.2); eCRCL 52 ML/MIN; eGFR 57 ML/MIN
[2024-09-16] MEDS ORDERED: CEPH500C2 PO (10:25)
--- NOTE | 2024-09-16 10:35 | DISCHARGE SUMMARY ---
Discharge Summary Providers to CC ~ Discharge Summary Admission Diagnosis: Chest pain eval for UT Hospital Course DATE OF ADMISSION: 09/15/2024 DATE OF DISCHARGE: 09/16/2024 Discharge Diagnosis\Comment: Chest pain UT ruled out, dilated cardiomyopathy not in acute exacerbation, Jaycee's thyroiditis, UTI possible kidney stones Operations\Procedures: None Consultants: None Complications: None Condition on DC: Stable New Medications: Cephalexin Monohydrate (Cephalexin) 500 Mg Capsule 1 CAP PO Q6H, #20 CAP Continued Medications: Amiodarone Hcl (Cordarone) 200 Mg Tablet 0.5 TAB PO BID Apixaban (Eliquis) 5 Mg Tablet 1 TAB PO BID Gabapentin (Gabapentin) 600 Mg Tablet 1 TAB PO BID Levothyroxine Sodium (Levothyroxine Sodium) 50 Mcg Tablet 1 TAB PO DAILY Metoprolol Succinate (Metoprolol Succinate) 50 Mg Tab.sr.24h 0.5 TAB PO BID Nortriptyline HCl (Nortriptyline HCl) 25 Mg Capsule 2 CAP PO TID Pantoprazole Sodium (Pantoprazole Sodium) 40 Mg Tablet.dr 1 TAB PO DAILY Potassium Chloride (Potassium Chloride) 20 Meq Tablet.er 1 TAB PO DAILY Pravastatin Sodium (Pravastatin Sodium) 80 Mg Tablet 1 TAB PO DAILY Sacubitril/Valsartan (Entresto 24 mg-26 mg Tablet) 24 Mg-26 Mg Tablet 1 TAB PO BID Discharge Summary: I admitted Ms. Granados with the following HPI:This is a 68-year-old female who woke up out of the asleep at 11:30 p.m. last evening with sensation of a Charley horse in the substernal region that was 8/10 with radiation to her neck and down her arms is spontaneous resolved within 1 hour patient presented to the ED in the midst of this episode and resolved without any medications. The patient was diaphoretic with the episode however was not short of breath. She has had couple episodes since that are not as intense and are more of a 5/10 the pain level. The patient has felt fatigued for a couple of days however yesterday she actually felt better and went out. 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 The patient currently is chest pain-free an echocardiogram and a Lexiscan stress test is ordered. Her troponins are negative an EKG is negative for signs of ischemia. Lexiscan stress test was negative for any reversible ischemia. Echocardiogram demonstrated an LVEF of 50% there were no significant findings on echocardiogram this is an improved ejection fraction from previous echocardiogram is at one time her EF was 30% and on the most recent echocardiogram with her installment dealer's her EF was 40%. The patient is chest pain/cramping in her chest is most likely secondary to esophageal spasms. The patient also has a UTI she has large amount of occult blood as well as large leuk esterase and white blood cells of 5-10 on the micro the patient has a history kidney stones thus I recommended that the patient strain her urine in her discharge instructions and a discharge the patient with a prescription for Keflex 500 mg Q ID x5 days and recommendations to take a probiotic [id number] to prevent C difficile enterocolitis Gen. No acute distress alert and oriented 4 Lungs clear to ascultation bilaterally, no wheezes rales or rhonchi appreciated Heart normal sinus rhythm no murmurs rubs or clicks noted Abdomen soft nontender bowel sounds are normoactive Lower extremities no clubbing cyanosis, nor edema appreciated bilaterally The patient felt ready to be discharged and was medically cleared to be discharged on 09/16/2024 The patient was seen and evaluated on day of discharge. Time spent on discharge 35 minutes The patient recovered sooner than to be expected with initial expected length of stay to be two midnights with chest pain/cramping with radiation to her neck requiring a myocardial infarction workup. *Problems/Diagnosis: (1) Chest pain Status: Acute Total Time Spent on D/C: > 30 Minutes Date of Service: September 16, 2024 Billing Provider: ROMMEL RENDON DO Common Visit Codes: 04940-DSC/OBS DISCH DAY >30min Problem Qualifiers (1) Chest pain: Qualified Codes: R07.9 - Chest pain, unspecified ROMMEL RENDON DO September 16, 2024 10:34
[2024-09-16 13:11] VITALS: BP 123/77; PULSE 61; RESP 18; TEMP 96.7; O2SAT 90
== END 2024-09-16 13:31 | disposition home or self-care (01) | DRG 392 ==
LOC: ER 00:44 → UNDOADMIN 07:37 → ED HOLD 07:37
PROVIDERS: ADMIT Family Medicine; ATTEND Family Medicine
PROC: 4A02XM4 Measurement of Cardiac Total Activity, External Approach (ICD-10-PCS; principal; 2024-09-15)
PROC: 3E033HZ Introduction of Radioactive Substance into Peripheral Vein, Percutaneous Approach (ICD-10-PCS; 2024-09-15)
PROC: B32T1ZZ Computerized Tomography (CT Scan) of Left Pulmonary Artery using Low Osmolar Contrast (ICD-10-PCS; 2024-09-15)
PROC: B3201ZZ Computerized Tomography (CT Scan) of Thoracic Aorta using Low Osmolar Contrast (ICD-10-PCS; 2024-09-15)
PROC: B32S1ZZ Computerized Tomography (CT Scan) of Right Pulmonary Artery using Low Osmolar Contrast (ICD-10-PCS; 2024-09-15)
DX: K22.4 Dyskinesia of esophagus (principal); I42.0 Dilated cardiomyopathy; N39.0 Urinary tract infection, site not specified; E06.3 Autoimmune thyroiditis; Z95.0 Presence of cardiac pacemaker; Z88.0 Allergy status to penicillin; Z88.2 Allergy status to sulfonamides; Z79.899 Other long term (current) drug therapy; Z88.1 Allergy status to other antibiotic agents; Z90.710 Acquired absence of both cervix and uterus; Z80.1 Family history of malignant neoplasm of trachea, bronchus and lung
CPT/HCPCS: 36415; 71045; 71275; 78452; 80053; 80061; 81001; 83036; 83735; 83880; 84484; 85025; 93005; 93017; 93306; 96372; 96374; 96375; 99285; A9500; G0378; J0280; J1650; J1815; J2270; J2405; J2785; J7030; Q9967

== ENCOUNTER 2025-01-20 07:52 | Day surgery (SDC) | payer MEDICARE, BC ==
[~2025-01-20] VITALS: Ht 167.6 cm; Wt 69.2 kg
[2025-01-20] VITALS (10 sets, daily range): BP systolic 134–146; BP diastolic 77–89; PULSE 60–65; RESP 12–16; TEMP 98.7; O2SAT 94–97
[~2025-01-20 07:52] MED LIST changes: -AMI200T PO; +AMIO200T76 PO; +APIX5TAB3 PO; +CEPH500C2 PO; -CYCL-920 PO; -DABI150C PO; -DAPA10TA PO; -ISOS30TA84 PO; -LEVO25TA7 PO; +LEVO50TA8 PO; +POTA-366 PO; -PRAV80TA3 PO; +PRAV80TA75 PO
--- NOTE | 2025-01-20 08:21 | ELECTROCARDIOGRAPH REPORT ---
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 Jesus Patel Measurements Intervals [place] Rate: 72 P: 256 SD: 129 QRS: -87 QRSD: 151 T: 95 QT: 485 QTc: 531 Interpretive Statements Atrial-ventricular dual-paced rhythm No further analysis attempted due to paced rhythm Electronically Signed On 01-23-2025 7:08:[address] Jesus Patel Please click the below link to view image of tracing.
[2025-01-20] MEDS ORDERED: METO50TA16 PO (08:34)
[2025-01-20] MEDS ORDERED: NORT50CA PO (08:34)
[2025-01-20] MEDS ORDERED: LEVO25TA7 PO (08:34)
[2025-01-20 08:46] LABS: MEAN PLATELET VOLUME 8.7 FL (7.4-10.4); RED CELL DISTRIBUTION WIDTH 14.8 % (11.5-14.5)
[2025-01-20 08:53] LABS: CREATININE 1.06 MG/DL (0.40-0.90); TOTAL CARBON DIOXIDE 29.0 MMOL/L (24-32); eCRCL 48 ML/MIN; eGFR 52 ML/MIN
[2025-01-20 08:55] LABS: INR 1.0 INR
[2025-01-20] MEDS: sodium bicarbonate 1meq/ml syr 150 ML in dextrose 5%-water 1,000 ML IV ONE (09:26)
[2025-01-20] MEDS ORDERED: LIDOcaine 1% 30ml preserv. free vial ONE (10:22)
[2025-01-20] MEDS ORDERED: midazolam 1 mg/ML 2ml injection ONE (10:22)
[2025-01-20] MEDS ORDERED: heparin 1,000unit/ml 10ml vial 10 ML ONE (10:23)
[2025-01-20] MEDS ORDERED: iohexol 350 MG/ML 50ML vial IV ONE (10:23)
[2025-01-20] MEDS ORDERED: fentaNYL/PF 50MCG/1 ML 2ML syringe ONE (10:23)
--- NOTE | 2025-01-20 13:46 | CARDIOLOGY REPORT ---
DATE OF SERVICE: 01/20/2025 DICTATING PHYSICIAN: JEWEL SAVAGE DO CARDIAC CATHETERIZATION REPORT REFERRING PHYSICIAN: Jewel Savage DO CLINICAL HISTORY: This 69-year-old woman has had a cardiomyopathy associated with left bundle branch block. LV function has improved to a level of 40-45% with resynchronization. She has also had an improvement in her exercise tolerance. However, for the last 2 weeks, she has had exertionally triggered chest pressure, which is relieved by rest. Because of the nature of her discomfort, a cardiac catheterization was ordered. Technically, she has unstable angina. PROCEDURES PERFORMED: * Left heart catheterization. * Left ventriculography. * Selective coronary arteriography. * 30 minutes of conscious sedation supervision. DESCRIPTION OF PROCEDURE: The patient was sedated with fentanyl and Versed. She was then prepared and draped in the usual manner. The right inguinal area was infiltrated with 1% lidocaine using a micropuncture set in a Seldinger technique. A 7-Azeri sheath was placed in the femoral artery. 3000 units of heparin were given in a peripheral IV. Left heart catheterization and left ventriculography were performed using a 6-Azeri pigtail catheter. Coronary arteriography was performed using 6-Azeri #4 left and right Matty catheters. Hemostasis of the arterial puncture site was managed with a Mynx device. RESULTS: HEMODYNAMIC DATA: The left ventricular end diastolic pressure was 17 mmHg. LEFT VENTRICULOGRAM: The left ventriculogram was technically satisfactory. The ejection fraction was estimated to be about 45%; however, the apex demonstrated early relaxation/slight dyskinesis. CORONARY ARTERIOGRAPHY: The coronary arteriograms were technically satisfactory. The patient had a right dominant system. LEFT MAIN CORONARY ARTERY: The left vein was a large unobstructed vessel bifurcating into the left anterior descending and circumflex coronary arteries. LEFT ANTERIOR DESCENDING CORONARY ARTERY: The LAD was a large vessel with a transapical distribution. There was a large diagonal taking its origin very proximally. There was a second diagonal greater to be also large, taking its origin from the mid LAD, and there was a third small to medium-sized diagonal taking its origin from the mid/distal mainstem LAD. There were no obstructive lesions in the left anterior descending coronary artery. CIRCUMFLEX CORONARY ARTERY: The circumflex was a large vessel. There was a tiny first obtuse marginal, a small to medium-sized second obtuse marginal, a small third obtuse marginal, and a small posterior descending branch. There were no obstructive lesions in the circumflex coronary artery. RIGHT CORONARY ARTERY: The right coronary artery was a small unobstructed vessel. CONCLUSIONS: 1. No evidence for obstructive coronary artery disease. 2. Reasonably good left ventricular function; however, there was early relaxation/slight dyskinesis of the apex. The estimated LVEF was 45%. PLAN: Ongoing medical therapy. JEWEL SAVAGE DO TID: [id number] RECEIPT: [id number] RP/[id number]
== END 2025-01-20 15:15 | disposition home or self-care (01) ==
LOC: SSTAY O 07:52
PROVIDERS: ATTEND Internal Medicine Cardiovascular Disease
DX: R07.9 Chest pain, unspecified (principal); I25.10 Atherosclerotic heart disease of native coronary artery without angina pectoris; I42.9 Cardiomyopathy, unspecified; I48.91 Unspecified atrial fibrillation; E03.9 Hypothyroidism, unspecified; E78.00 Pure hypercholesterolemia, unspecified; Z79.890 Hormone replacement therapy; Z79.899 Other long term (current) drug therapy; Z95.0 Presence of cardiac pacemaker; Z98.890 Other specified postprocedural states; Z88.0 Allergy status to penicillin; Z88.1 Allergy status to other antibiotic agents; Z88.2 Allergy status to sulfonamides
CPT/HCPCS: 36415; 80048; 83735; 85025; 85610; 93005; 93458; 99152; C1725; C1894; J1644; J2003; J2250; J3010; J3490; J7030; J7070; Q0163; Q9967; Z7610; 99153